=== PATIENT | female | born 1980 | race Caucasian/White ===

== ENCOUNTER 2016-09-08 20:03 | Emergency (ER) | payer OTHER ==
[2016-09-08] MEDS ORDERED: oxyCODONE/ACETAMINOPHEN 5/325 TABLET PO ONE (20:37)
[2016-09-08] MEDS ORDERED: SULFAMETHOXAZOLE/TRIMETHOPRIM 1 EACH TABLET PO ONE (20:37)
--- NOTE | 2016-09-08 20:47 | ED Physician Documentation ---
Ear Complaints - HISTORIAN Historian: patient - HPI Stated Complaint: bilateral ear pain Chief Complaint: Earache Additional Information: started this evening Timing: still present, worse Location of Pain: both ears Severity: moderate Associated Symptoms: sharp pain Further Comments: no - ROS CONST: no problems CVS/RESP: none GI/: denies: black stools, nausea, vomiting MS/SKIN/LYMPH: none NEURO/PSYCH: denies: weakness, numbness, anxiety, depression All Systems -: No - PAST HX Past History: none Immunizations: referred to PCP Allergies/Adverse Reactions: Allergies Allergy/AdvReac Type Severity Reaction Status Date / Time tramadol Allergy Verified 09/08/16 20:26 Home Medications: Ambulatory Orders Medication Instructions Recorded Alprazolam [Xanax] 0.5 mg PO Q6 09/08/16 Zolpidem Tartrate [Ambien] 5 mg PO HS 09/08/16 - SOCIAL HX Smoking History: cigarettes Alcohol Use: none Drug Use: none - FAMILY HX Family History: No - VITAL SIGNS Vital Signs: Vital Signs Temp Pulse Resp BP Pulse Ox 100.2 F H 99 H 16 103/47 99 09/08/16 20:13 09/08/16 20:13 09/08/16 20:13 09/08/16 20:13 09/08/16 20:13 - REVIEWED ASSESSMENTS Nursing Assessment Reviewed: Yes Vitals Reviewed: Yes Progress - Results/Orders Results/Orders: strep screen ordered - Progress Progress: pt. 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 distress, lungs clear, reg. rate & rhythm Abdomen: non-tender, no organomegaly Skin: nml color, no skin rash Neuro/Psych: oriented x3, mood/affect nml Discharge Clincal Impression: Strep pharyngitis Home Medications: Ambulatory Orders Alprazolam [Xanax] 0.5 mg PO Q6 09/08/16 Zolpidem Tartrate [Ambien] 5 mg PO HS 09/08/16 Comments: discharged with scripts for percocet 5/325 #10 1 p.o. q 4-6 hours prn pain and Bactrim DS 1 p.o. bid #20 no refills. Condition: Stable Disposition: HOME, SELF-CARE Decision to Admit: NO Decision Time: 20:40
[2016-09-08 23:03] VITALS: BP 101/65
== END 2016-09-08 21:05 | disposition home or self-care (01) ==
LOC: ED 20:03
DX: J02.0 Streptococcal pharyngitis (principal)
CPT/HCPCS: A9270 ×2; 87880; 99282